=== PATIENT | female | born 1955 | race Hispanic/Latino ===

== ENCOUNTER 2018-09-14 07:58 | Outpatient (CLI) | payer MEDICARE | END 2018-09-14 07:59 | disposition home or self-care (01) | LOC: LAB 07:58 ==

== ENCOUNTER 2018-09-19 07:59 | Outpatient (CLI) | payer MEDICARE | END 2018-09-19 08:00 | disposition home or self-care (01) | LOC: RAD 07:59 | DX: C54.1 Malignant neoplasm of endometrium (principal) ==